=== PATIENT | male | born 1970 | race Caucasian/White ===

== ENCOUNTER 2020-12-02 11:18 | Outpatient (REF) | payer MEDICAID, SELFPAY | END 2020-12-02 11:19 | disposition home or self-care (01) | LOC: HO.LAB 11:18 | PROVIDERS: Visit Provider Internal Medicine | DX: Z20.822 Contact with and (suspected) exposure to COVID-19 (principal) | CPT/HCPCS: 36415; C9803; U0003; U0005 ==

== ENCOUNTER 2021-02-10 07:50 | Outpatient (REF) | payer MEDICAID, SELFPAY ==
[2021-02-10 08:34] LABS: COVID-19 Test Negative (Negative)
== END 2021-02-10 07:51 | disposition home or self-care (01) ==
LOC: HO.LAB 07:50
PROVIDERS: Visit Provider Internal Medicine
DX: Z20.822 Contact with and (suspected) exposure to COVID-19 (principal)
CPT/HCPCS: 36415; 87635; C9803